=== PATIENT | female | born 1990 ===

== ENCOUNTER 2024-05-22 06:23 | Day surgery (SDC) | payer OTHER ==
[2024-05-16 12:50] VITALS: BP 108/70
[~2024-05-22] VITALS: Ht 256.5 cm; Wt 55.3 kg
[2024-05-22] MEDS ORDERED: POVIDONE-IODINE 118 ML BOTT TOP ONE (11:00)
[2024-05-22] MEDS ORDERED: MORPHINE SULFATE 4 MG/ML VIAL IV ONE ×2 (11:20→12:05)
[2024-05-22] MEDS ORDERED: IBUPROFEN800 MG PO (11:32)
[2024-05-22] MEDS ORDERED: NEURONTIN300 MG PO (11:33)
== END 2024-05-22 13:30 | disposition home or self-care (01) ==
LOC: CIR.AMB 06:23
PROVIDERS: ATTEND Obstetrics & Gynecology Gynecology
DX: N80.102 Endometriosis of left ovary, unspecified depth (principal); N80.3C1 Endometriosis of the right uterosacral ligament, unspecified depth; N80.8 Other endometriosis